=== PATIENT | male | born 1955 | race Caucasian/White ===

== ENCOUNTER → 2017-12-09 | Outpatient (CLI) | payer OTHER ==
[2017-12-09 09:34] LABS: BLOOD UREA NITROGEN 18 mg/dL (8-26)
[2017-12-09 09:34] LABS: CREATININE 0.8 mg/dL (0.7-1.3); GFR 97.6
[2017-12-09] MEDS: GADOBUTROL 7.5 MMOL/7.5 ML VIAL IV ×2 (10:17)
== END | disposition home or self-care (01) ==
LOC: MRI 08:14
DX: M54.16 Radiculopathy, lumbar region (principal); M48.061 Spinal stenosis, lumbar region without neurogenic claudication; I10 Essential (primary) hypertension
CPT/HCPCS: 36415; 72158; 82565; 84520; A9585

== ENCOUNTER → 2018-01-06 | Outpatient (CLI) | payer OTHER | END | disposition home or self-care (01) | LOC: PNCL 10:15 | DX: M48.061 Spinal stenosis, lumbar region without neurogenic claudication (principal); E11.9 Type 2 diabetes mellitus without complications; E66.9 Obesity, unspecified; I10 Essential (primary) hypertension; J44.9 Chronic obstructive pulmonary disease, unspecified; F17.210 Nicotine dependence, cigarettes, uncomplicated; Z79.84 Long term (current) use of oral hypoglycemic drugs; Z95.5 Presence of coronary angioplasty implant and graft | CPT/HCPCS: 99214 ==

== ENCOUNTER → 2018-01-20 | Outpatient (CLI) | payer OTHER ==
[~2018-01-20] MED LIST: IOHEXOL 180 MG/ML 10 ML VIAL.; LIDOCAINE 1% PF 2 ML VIAL.; methylPREDNISolone ACETATE 40 MG/ML VIAL.; methylPREDNISolone ACETATE 80 MG/ML VIAL.
== END | disposition home or self-care (01) ==
LOC: PNCL 09:03
DX: M48.061 Spinal stenosis, lumbar region without neurogenic claudication (principal); M54.16 Radiculopathy, lumbar region; M96.1 Postlaminectomy syndrome, not elsewhere classified
CPT/HCPCS: 62323; J1030; J1040; Q9965

== ENCOUNTER → 2018-03-18 | Outpatient (CLI) | payer OTHER ==
[2015-07-31 12:40] VITALS: BP 173/81
[~2018-03-18] MED LIST changes: +AMLO5TAB2 PO; +ASPI81TA50 PO; +ATOR40TA59 PO; +EMPA25TA PO; +FURO40TA4 PO; +GABA600T2 PO; +HYDR-963 PO; -IOHEXOL 180 MG/ML 10 ML VIAL.; +IOHEXOL 180 MG/ML 10 ML VIAL. ONE; -LIDOCAINE 1% PF 2 ML VIAL.; +LIDOCAINE 2% PF 2ML VIAL. ONE; +LIRA0.6P2 SQ; +METF500T5 PO; +METO50TA6 PO; +NAPR220C4 PO; +OMEP20CA9 PO; +RAMI5CAP PO; +TIOT18CA IH; +TIZA4CAP3 PO; +TRAM50TA PO; -methylPREDNISolone ACETATE 40 MG/ML VIAL.; +methylPREDNISolone ACETATE 40 MG/ML VIAL. ONE; -methylPREDNISolone ACETATE 80 MG/ML VIAL.; +methylPREDNISolone ACETATE 80 MG/ML VIAL. ONE
--- NOTE | 2018-03-19 00:29 | PAIN ---
DATE OF SERVICE: 03/18/2018 PROGRESS NOTE FOR PAIN CLINIC DIAGNOSES: Lumbar radiculopathy with spinal stenosis, lumbar post-laminectomy syndrome. HISTORY OF PRESENT ILLNESS: The patient is a 62-year-old male who returns for followup status post lumbar epidural steroid injection x 1. The patient reports about 56% improvement with the last injection, with pain still radiating from the low back bilaterally. It is somewhat worse on the left, but still in the right side as well. The patient reports it has been increasing with distance walking, increases his inability to do household activities. He is sleeping much better. It does not awaken him from sleep at this time. The patient reports occasional radiation in the lower extremities, mostly in the low back. The patient reports it is aching and tight, stabbing at times. The patient reports it is a 5 on a scale of 10 at its worse, 2 on average, 2 at its least and is a 2 today. The patient reports no new motor or sensory deficits. No new bowel or bladder incontinence or other complaints. PHYSICAL EXAMINATION: VITAL SIGNS: Blood pressure 147/77, pulse 70, respirations 20 and temperature 98.2 degrees Fahrenheit. Height 5 feet 10 inches and weight is 327 pounds. GENERAL: The patient is awake, alert, oriented, appropriate, very pleasant demeanor. HEENT EXAMINATION: Shows normocephalic, atraumatic. Extraocular movements are intact and symmetrical. Oral cavity, mucous membranes are moist and pink. Dentition is intact. NECK: Shows anterior throat supple, without palpable lymphadenopathy noted. Swallow reflex is symmetrical. CHEST: Shows normal on inspection. Breath sounds clear to auscultation bilaterally. HEART: Shows S1, S2 clear. No murmurs auscultated. ABDOMEN: Soft, nontender and nondistended. No palpable organomegaly is noted. Obese. No rebound or guarding demonstrated. No other abnormalities. BACK: Shows spine grossly in the midline. Slight exaggeration of the thoracic kyphosis and minor flattening of the lumbar lordotic curvature. Lumbar paraspinous muscle shows symmetrical on inspection. On palpation, it shows some moderate tenderness only diffusely in the low lumbar distribution without radiation or without trigger points. Good rotational motion is maintained both laterally as well as extension and flexion without pain reported. EXTREMITIES: Lower extremities show deep tendon reflexes 1+ in the patellar and tendo calcaneus tendons. Motor exam is strong, a 4 on a scale of 5 on the left and 5/5 on the right. Quads and hamstring flexion 4/5 left and 5/5 right as well, but intact. Peripheral pulses are 1+ posterior tibia. No peripheral edema is noted. Options were discussed with the patient. The patient's old chart was reviewed as was his current medication regimen updated. Current review of systems updated today as well. We will proceed with a second in the series of lumbar epidural steroid injection today with fluoroscopic guidance. Risks were again discussed including, but not limited to bleeding, infection, possibility of epidural hematoma, subsequent neurologic compromise, dural puncture, headaches, spinal cord and/or nerve damage, side effects of steroid medication and poor results regarding pain control. The patient understands and wishes to proceed. The patient will return to the clinic in approximately 2 weeks for followup. He was counseled on his return appointment, activity level and side effects to be aware of. DIAGNOSES: Lumbar radiculopathy with lumbar spinal stenosis, lumbar post-laminectomy syndrome. PROCEDURE: Lumbar epidural steroid injection in translaminar approach L5-S1 level using C-arm fluoroscopic guidance under sterile prep and drape using local anesthetic. MEDICATION INJECTED: A total of 120 mg Depo-Medrol plus 10 mL of preservative-free normal saline and 2 mL of Isovue for contrast. CONDITION AT DISCHARGE: Stable. The patient tolerated the procedure well. He had no complications. AMOR GOSS MD DR: AUGIE/paty JOB#: [id number] / [id number]
== END | disposition home or self-care (01) ==
LOC: PNCL 08:46
PROVIDERS: ATTEND Anesthesiology
DX: M48.061 Spinal stenosis, lumbar region without neurogenic claudication (principal); M96.1 Postlaminectomy syndrome, not elsewhere classified; M54.16 Radiculopathy, lumbar region; Z79.82 Long term (current) use of aspirin; Z79.899 Other long term (current) drug therapy
CPT/HCPCS: 62323; J1030; J1040; J2001; Q9965

== ENCOUNTER → 2018-09-28 | Outpatient (CLI) | payer OTHER ==
[2015-07-31 12:40] VITALS: BP 173/81
[~2018-09-28] MED LIST changes: +AMLO5TAB10 PO; -AMLO5TAB2 PO; -GABA600T2 PO; +GABA600T7 PO; +HYDR-3135 PO; -HYDR-963 PO; -IOHEXOL 180 MG/ML 10 ML VIAL. ONE; -LIDOCAINE 2% PF 2ML VIAL. ONE; +METF500T16 PO; -METF500T5 PO; +OMEP20CA10 PO; -OMEP20CA9 PO; -RAMI5CAP PO; +RAMI5CAP50 PO; -methylPREDNISolone ACETATE 40 MG/ML VIAL. ONE; -methylPREDNISolone ACETATE 80 MG/ML VIAL. ONE
--- NOTE | 2018-09-28 10:54 | RAD ---
EXAM: Left hip, 2 views; left shoulder, 3 views HISTORY: Pain. COMPARISON: None. FINDINGS: Left hip: 2 views of the left hip are obtained. There is left hip joint space narrowing with subchondral sclerosis and marginal acetabular and femoral head spurring. Left shoulder: 3 views of the left shoulder obtained. There is no fracture, dislocation or subluxation. There is mild acromial clavicular spurring with a tiny subacromial spur. There is minimal glenohumeral spurring. There is degenerative facet arthropathy involving the visualized cervical spine. IMPRESSION: 1. Moderate left hip osteoarthritis. 2. Mild left acromioclavicular and minimal left glenohumeral osteoarthritis. Electronically signed by: Leslie Pham MD (09/28/2018 10:51 AM) [email or web address]
--- NOTE | 2018-09-28 20:00 | PAIN ---
DATE OF SERVICE: 09/28/2018 DIAGNOSES: Lumbar radiculopathy with lumbar spinal stenosis and post-lumbar laminectomy syndrome. HISTORY OF PRESENT ILLNESS: The patient is a 62-year-old male who returns for a followup status post lumbar epidural steroid injections, most recently, 03/18/2018. The patient did very well with about 80% improvement until about 2 months ago. The patient reports for about 4 months, the pain was reduced significantly by about 80% in the low back and left lower extremity. The patient reports it is beginning to return now. He has been chopping a lot of wood at home recently over the past couple of months and has had increased pain in the low back, posterior gluteus, posterior thigh, posterior calf on the left side primarily. The patient reports some on the right gluteus, but across the low back is aching and dull. The patient reports pain is stabbing, burning, aching, sharp, shooting, becoming more constant and radiating to the left leg. The patient reports it is a 7-8 on a scale of 10 at all times, worst, average and least and is a 7-8 on a scale of 10 today. The patient reports no new motor or sensory deficits, no new bowel or bladder incontinence. Did very well with increasing in his distance walking, doing activities at home, at work with chopping wood very comfortably. The patient is sleeping much better. The patient reports it is beginning to awaken him from sleep again over the past month or so but only occasionally, not every night. The patient reports no new motor or sensory deficits, no new bowel or bladder incontinence or other complaints. PHYSICAL EXAMINATION: VITAL SIGNS: The patient's blood pressure 147/76, pulse 59, respirations 16, temperature is 98.1 degrees Fahrenheit, height is 5 feet 10 inches, weight is 328 pounds. GENERAL: The patient is awake, alert, oriented, appropriate, very pleasant demeanor. HEENT: Shows normocephalic, atraumatic. Extraocular movements intact and symmetrical. Oral cavity shows mucous membranes moist and pink. Dentition is intact. NECK: Shows anterior throat supple without palpable lymphadenopathy noted. Swallow reflex is symmetrical. CHEST: Shows normal with inspection. Breath sounds clear to auscultation bilaterally. HEART: Shows S1, S2 clear. No murmurs auscultated. ABDOMEN: Obese, soft, nontender, nondistended. No palpable organomegaly is noted. No rebound or guarding demonstrated. MUSCULOSKELETAL: Back shows spine grossly in the midline, normal appearing thoracic kyphosis and minor flattening of the lumbar lordotic curvature with well healed surgical scar noted in the lumbar distribution. Lumbar paraspinous muscle shows symmetrical on inspection; with palpation shows some moderate tenderness throughout the upper, middle, lower distribution of paraspinous muscles, but without radiation. The patient has good rotational motion of the lumbar spine, both laterally as well as extension and flexion without difficulty. Lower extremities show deep tendon reflexes at 1+ in the patellar and tendo-calcaneus tendons and are equal. Motor exam is strong with approximately 4 on a scale of 5 with left dorsiflexion, extension, 5/5 on the right, quadriceps and hamstring flexion are 5/5 and equal. Peripheral pulses are 1+ posterior tibia. No peripheral edema is noted bilaterally. PLAN: Options were discussed with the patient. The patient's old chart was reviewed as his current medication regimen and updated. Current review of systems was updated today as well. We will proceed with preauthorization for a lumbar epidural steroid injection. The patient did very well after the last injection with about 80% improvement for several months, now pain returning in a radicular pattern in the L5-S1 dermatomal distribution, more on the left lower extremity as noted. The patient will continue to do stretching and strengthening exercises as he has been doing. He is trying to walk every day, but has had some difficulty with cold weather recently and the pain is beginning to limit this to a moderate extent. We encouraged him to maintain his stretching and strengthening and try to do some more walking if he is able to. The patient will return to the clinic in approximately 1 week. We will plan on lumbar epidural steroid injection at that time at L5-S1 level, translaminar approach. In the meantime, we will prescribe a Medrol Dosepak. The patient was given instruction as well as side effects to be aware of, especially watching his blood glucose while taking this and the patient will return to the clinic once approval is obtained. AMOR GOSS MD DR: AUGIE/paty JOB#: [id number] / [id number]
== END | disposition home or self-care (01) ==
LOC: PNCL 09:21
PROVIDERS: ATTEND Anesthesiology
DX: M48.061 Spinal stenosis, lumbar region without neurogenic claudication (principal); M54.16 Radiculopathy, lumbar region; M96.1 Postlaminectomy syndrome, not elsewhere classified; M16.12 Unilateral primary osteoarthritis, left hip; M19.012 Primary osteoarthritis, left shoulder; M75.92 Shoulder lesion, unspecified, left shoulder
CPT/HCPCS: 73030; 73502; G0463

== ENCOUNTER → 2018-10-12 | Outpatient (CLI) | payer OTHER ==
[2015-07-31 12:40] VITALS: BP 173/81
[~2018-10-12] MED LIST changes: +IOHEXOL 180 MG/ML 10 ML VIAL. ONE; +methylPREDNISolone ACETATE 40 MG/ML VIAL. ONE; +methylPREDNISolone ACETATE 80 MG/ML VIAL. ONE
--- NOTE | 2018-10-12 23:28 | PAIN ---
DATE OF SERVICE: 10/12/2018 PROGRESS NOTE FOR PAIN CLINIC DIAGNOSES: Lumbar radiculopathy with lumbar spinal stenosis and post-lumbar laminectomy syndrome. HISTORY OF PRESENT ILLNESS: The patient is a 62-year-old male who returns for followup status post evaluation and preauthorization for lumbar epidural steroid injection. The patient returns today still pain in the low back, left lower extremity as it was previously. The patient reports no new motor or sensory deficits and no new changes. Still significant pain in the posterior gluteus, posterior thigh, posterior calf into the lower leg and ankle as well. The patient reports it is worse with walking, standing, change in positions and also some knee pain and left hip pain as well. The patient reports it is awakening him from sleep at night. No new motor or sensory deficits and rates the pain as 8 on a scale of 10 at its worst, 5 on its least and is 7 on average and is a 7 today. The patient reports it is aching, sharp, dull in the back, shooting in the leg on the left side radiating more constant, more severe with ambulation, walking and better with sitting but again awakening from sleep with lying down. PHYSICAL EXAMINATION: VITAL SIGNS: The patient's blood pressure is 117/43, pulse 57, respirations 16 and temperature is 97.8 degrees Fahrenheit. Height 5 feet 10 inches and weight is 324 pounds. GENERAL: The patient is awake, alert, oriented, appropriate and very pleasant demeanor. HEENT: Head shows normocephalic and atraumatic. Extraocular movements are intact and symmetrical. Oral cavity: Mucous membranes moist and pink. Dentition is intact. NECK: Shows anterior throat supple without palpable lymphadenopathy noted. Swallow reflex is symmetrical. CHEST: Shows normal on inspection. Breath sounds clear to auscultation bilaterally. HEART: Shows S1 and S2 clear. No murmurs auscultated. ABDOMEN: Soft, nontender and nondistended. No palpable organomegaly is noted. No rebound or guarding demonstrated. BACK: Shows spine grossly in the midline. Normal appearing thoracic kyphosis and some flattening of lumbar lordotic curvature with well-healed surgical scar noted. Lumbar paraspinous muscle shows symmetrical on inspection. Somewhat firm with palpation and without radiation of pain. The patient has good rotational motion of the lumbar spine, both laterally as well as extension and flexion without significant pain reported. EXTREMITIES: Lower extremities show deep tendon reflexes at 1+ in the patellar and tendo-calcaneus tendons are equal. Motor exam is strong with 4/5 on the left dorsiflexion and extension and 5/5 on the right. Peripheral pulses are 1+ posterior tibia. No peripheral edema is noted bilaterally. Options were discussed with the patient. The patient's old chart was reviewed as well as his current medication regimen updated. Current review of systems updated today as well. We will proceed with a lumbar epidural steroid injection today with fluoroscopic guidance. Risks were again discussed including, but not limited to bleeding, infection, possibility of epidural hematoma and subsequent neurological compromise, dural puncture, headaches, spinal cord and/or nerve damage, side effects of steroid medication and poor results regarding pain control. The patient understands and wished to proceed. The patient will return to the clinic in approximately 2 weeks for followup, was counseled as to return appointment, activity level and side effects to be aware of. DIAGNOSES: Lumbar radiculopathy with lumbar spinal stenosis and lumbar post-laminectomy syndrome. PROCEDURE: Lumbar epidural steroid injection, translaminar approach, L5-S1 level using C-arm fluoroscopic guidance under sterile prep and drape using local anesthetic. MEDICATION INJECTED: A total of 120 mg Depo-Medrol plus 10 mL of preservative-free normal saline and 2 mL of Isovue for contrast. CONDITION AT DISCHARGE: Stable. The patient tolerated the procedure well and had no complications. AMOR GOSS MD DR: AUGIE/paty JOB#: [id number] / [id number]
== END | disposition home or self-care (01) ==
LOC: PNCL 09:49
PROVIDERS: ATTEND Anesthesiology
DX: M48.061 Spinal stenosis, lumbar region without neurogenic claudication (principal); M96.1 Postlaminectomy syndrome, not elsewhere classified; M54.16 Radiculopathy, lumbar region
CPT/HCPCS: 62323; J1030; J1040; Q9965

== ENCOUNTER → 2019-04-07 | Outpatient (CLI) | payer OTHER ==
[2015-07-31 12:40] VITALS: BP 173/81
[~2019-04-07] MED LIST changes: +CRESTOR10 MG PO; -IOHEXOL 180 MG/ML 10 ML VIAL. ONE; -methylPREDNISolone ACETATE 40 MG/ML VIAL. ONE; -methylPREDNISolone ACETATE 80 MG/ML VIAL. ONE
--- NOTE | 2019-04-07 20:03 | PAIN ---
DATE OF SERVICE: 04/07/2019 PROGRESS NOTE FOR PAIN CLINIC DIAGNOSIS: Lumbar radiculopathy with lumbar spinal stenosis and post-lumbar laminectomy syndrome. HISTORY OF PRESENT ILLNESS: The patient is a 63-year-old male who returns for followup status post lumbar epidural steroid injection, last seen on 10/12/2018. The patient did very well initially with about a 75% improvement, now is decreasing down to about a 50% improvement overall, but still doing quite well. The patient reports the pain is returning now more noticeable each day in the low back, posterior gluteus, radiating to posterior lower extremities, worse on the left than the right into the posterior thigh, posterior calf on the left with walking, standing, and changing positions. The patient reports it awakens him from sleep at least 2-3 times a night. Reports the pain is tight, shooting, tingling, burning, cramping, stabbing, radiating, becoming more constant, better with sitting down or lying down, but again waking him from sleep. The patient reports initially he was doing better with distance walking, doing work activities, household activities, standing for longer periods and traveling with greater ease and comfort, now the pain is returning again still significantly improved, but returning in a radicular fashion, worse on the left than the right in the L5-S1 dermatomal distribution. The patient reports his pain in the last week average is 5-6, worst is 5-6 and least is 5/5 today. The patient reports no new motor or sensory deficits, no new bowel or bladder incontinence or other complaints. PHYSICAL EXAMINATION: VITAL SIGNS: The patient's blood pressure 154/83, pulse 57, respirations are 16, temperature 98.2 degrees Fahrenheit, height is 5 feet 10 inches, weight is 311 pounds. GENERAL: The patient is awake, alert, oriented, appropriate, very pleasant demeanor. HEENT: Head is normocephalic, atraumatic. Extraocular movements are intact and symmetrical. Oral cavity: Mucous membranes moist and pink. Dentition is intact. NECK: Shows anterior throat supple without palpable lymphadenopathy noted. Swallow reflex symmetrical. CHEST: Shows normal on inspection. Breath sounds are clear to auscultation bilaterally. HEART: Shows S1, S2 clear. No murmurs auscultated. ABDOMEN: Soft, nontender, nondistended. No palpable organomegaly is noted. No rebound or guarding demonstrated. BACK: Shows spine grossly in the midline. The patient's lumbar spine shows some moderate flattening curvature with well-healed surgical scarring noted. Lumbar paraspinous muscle shows symmetrical on inspection, with palpation shows some moderate tenderness throughout the upper, middle and lower distribution of paraspinous musculature bilaterally, but only diffusely without significant radiation. EXTREMITIES: The patient's lower extremities show deep tendon reflexes at 1+ in the patellar and tendo-calcaneus tendons. Motor exam is approximately 4 on a scale of 5 on the left and 5/5 on the right with dorsiflexion, extension, quadriceps and hamstring flexion. Peripheral pulses are 1+ posterior tibia. No peripheral edema is noted bilaterally. Straight leg raise noted to be mildly positive on the left at about 45 degrees, decreased with knee flexion, right side is negative. Gaenslen's and Karan's test are negative bilaterally. Options were discussed with the patient. The patient's old chart was reviewed as his current medication regimen updated. Current review of systems updated today as well. We will preauthorize the patient for lumbar epidural steroid injections. He has done very well with these in the past in the L5-S1 translaminar approach for his radiculopathy, left greater than right at L5-S1 dermatomal distribution. The patient will continue with stretching and strengthening exercises. He is doing on his own as well as walking as much as tolerated. In the meantime, the patient will return to clinic in approximately 1 week to plan on lumbar epidural steroid injection at that time. AMOR GOSS MD DR: AUGIE/paty JOB#: [id number] / [id number]
== END | disposition home or self-care (01) ==
LOC: PNCL 07:29
PROVIDERS: ATTEND Anesthesiology
DX: M54.16 Radiculopathy, lumbar region (principal); M48.061 Spinal stenosis, lumbar region without neurogenic claudication
CPT/HCPCS: G0463

== ENCOUNTER → 2019-04-21 | Outpatient (CLI) | payer OTHER ==
[2015-07-31 12:40] VITALS: BP 173/81
[~2019-04-21] MED LIST changes: +IOHEXOL 180 MG/ML 10 ML VIAL. ONE; +methylPREDNISolone ACETATE 40 MG/ML VIAL. ONE; +methylPREDNISolone ACETATE 80 MG/ML VIAL. ONE
--- NOTE | 2019-04-21 08:46 | PAIN ---
DATE OF SERVICE: 04/21/2019 PROGRESS NOTE FOR PAIN CLINIC DIAGNOSES: Lumbar radiculopathy with lumbar spinal stenosis, post-lumbar laminectomy syndrome. HISTORY OF PRESENT ILLNESS: The patient is a 63-year-old male who returns for followup status post lumbar epidural steroid injection x 1, about 75% improvement, is waiting for preauthorization with his insurance provider, which is obtained. Now returns reporting still pain in the low back, left lower extremity, posterior gluteus, posterior thigh, posterior left foot. The patient reports it is tingling, burning, aching, sharp, shooting, radiating, sometimes constant, worse with walking, standing, changing positions, better with lying down, but does awaken him from sleep at night occasionally. The patient reports no new motor or sensory deficits, no new bowel or bladder incontinence. Rates his pain as a 7 on a scale of 10 at its worst over the past week, 6 on average, 5 at its least and is a 6 today. The patient reports no new motor or sensory deficits, no new bowel or bladder incontinence or other complaints. PHYSICAL EXAMINATION: VITAL SIGNS: The patient's blood pressure is 125/73, pulse 78, respirations 16, temperature 98.0 degrees Fahrenheit, height is 5 feet 10 inches, weight is 310 pounds. GENERAL: The patient is awake, alert, oriented, appropriate, very pleasant demeanor. HEENT: Shows normocephalic, atraumatic. Extraocular movements are intact and symmetrical. Oral cavity: Mucous membranes moist and pink. Dentition is intact. NECK: Shows anterior throat supple without palpable lymphadenopathy noted. Swallow reflex symmetrical. CHEST: Shows normal on inspection. Breath sounds are clear to auscultation bilaterally. HEART: Shows S1, S2 clear. No murmurs auscultated. ABDOMEN: Soft, nontender, nondistended. No palpable organomegaly is noted. No rebound or guarding demonstrated. BACK: Shows spine grossly in the midline. Well-healed surgical scars noted in the lumbar distribution with some flattening of lumbar lordotic curvature with inspection. Lumbar paraspinous musculature is symmetrical. With palpation, shows some moderate tenderness diffusely in the middle and lower distribution of paraspinous muscles bilaterally, but only diffusely without radiation or asymmetry. EXTREMITIES: The patient's lower extremities show deep tendon reflexes at 1+ in the patellar and tendo calcaneus tendons. Motor exam is approximately 4 on a scale of 5 on the left, 5/5 on the right with dorsiflexion, extension, quadriceps and hamstring flexion. Peripheral pulses are 1+ posterior tibial. No peripheral edema is noted bilaterally. Options were discussed with the patient. The patient's old chart was reviewed as his current medication regimen updated. Current review of systems updated today as well. We will proceed with a second in the series of lumbar epidural steroid injection today with fluoroscopic guidance. Risks were again discussed including, but not limited to bleeding, infection, possibility of epidural hematoma, subsequent neurological compromise, dural puncture, headaches, spinal cord and/or nerve damage, side effects of steroid medication and poor results regarding pain control. The patient understands and wished to proceed. The patient will return to clinic in approximately 2 weeks for followup. She was counseled on return appointment, activity level and side effects to be aware of. DIAGNOSES: Lumbar radiculopathy with lumbar spinal stenosis, lumbar post-laminectomy syndrome. PROCEDURE: Lumbar epidural steroid injection, translaminar approach at the L5-S1 level using C-arm fluoroscopic guidance under sterile prep and drape using local anesthetic. MEDICATION INJECTED: The patient received a total of 120 mg Depo-Medrol plus 10 mL of preservative-free normal saline and 2 mL of contrast. CONDITION AT DISCHARGE: Stable. The patient tolerated the procedure well, did have a slight headache in the recovery room, which have resolved with the supine position and p.o. Tylenol. The patient was counseled to maintain low activity today and just to seated or lying down if possible. The case of worsening of potential spinal headache. The patient understands and agrees, was discharged in good and stable condition. AMOR GOSS MD DR: AUGIE/paty JOB#: [id number] / [id number]
== END ==
LOC: PNCL 07:25
PROVIDERS: ATTEND Anesthesiology
DX: M54.16 Radiculopathy, lumbar region (principal); M48.061 Spinal stenosis, lumbar region without neurogenic claudication
CPT/HCPCS: 62323; J1030; J1040; Q9965

== ENCOUNTER → 2019-08-11 | Outpatient (CLI) | payer OTHER, MEDICARE ==
[2015-07-31 12:40] VITALS: BP 173/81
[~2019-08-11] MED LIST changes: -IOHEXOL 180 MG/ML 10 ML VIAL. ONE; -OMEP20CA10 PO; +OMEP20CA16 PO; -methylPREDNISolone ACETATE 40 MG/ML VIAL. ONE; -methylPREDNISolone ACETATE 80 MG/ML VIAL. ONE
--- NOTE | 2019-08-11 10:40 | PAIN ---
DATE OF SERVICE: 08/11/2019 PROGRESS NOTE FOR PAIN CLINIC DIAGNOSES: Lumbar radiculopathy with lumbar spinal stenosis, lumbar post-laminectomy syndrome. HISTORY OF PRESENT ILLNESS: The patient is a 63-year-old male who returns for followup status post lumbar epidural steroid injection x 2, most recently on 04/21/2019. The patient had 80% improvement for about 6 weeks following the injection. The patient reports his left hip was better, he was sleeping better, was increased activity with greater distance walking, doing household activities with much greater ease and comfort, traveling with better ease. The patient reports it is awakening him from sleep occasionally now, but only about every 7 hours. He is getting most of a good night rest he reports. The patient reports the pain is returning in the low back, posterior gluteus, posterior thigh on the left side radiating to posterior calf and the knee as well. The patient reports it is aching, sharp, dull, shooting, stabbing, radiating and becoming severe at times with standing and walking. The patient reports it is better with sitting or lying down. The patient reports his pain is 8 on a scale of 10 at its worst over the past week, 7 on average, 5 at its least and is a 7 today. The patient reports no new motor or sensory deficits, no new bowel or bladder incontinence or other complaints. PHYSICAL EXAMINATION: VITAL SIGNS: The patient's blood pressure 141/72, pulse 74, respirations 16, temperature 98.2 degrees Fahrenheit, height is 5 feet 10 inches and weight is 310 pounds. GENERAL: The patient is awake, alert, oriented, appropriate, very pleasant demeanor. HEENT: Shows normocephalic, atraumatic. Extraocular movements are intact and symmetrical. Oral cavity shows mucous membranes are moist and pink. NECK: Shows anterior throat supple. CHEST: Shows normal on inspection. Breath sounds are clear bilaterally. HEART: Shows S1, S2 clear. ABDOMEN: Obese, soft, nontender, nondistended. No palpable organomegaly. BACK: Shows spine grossly in the midline. Slight exaggeration of thoracic kyphosis and minor flattening of lumbar lordotic curvature with well-healed surgical scars noted. Lumbar paraspinous muscle shows symmetrical on inspection, with palpation shows some moderate tenderness diffusely throughout the upper, middle and lower distribution of paraspinous muscles, but is symmetrical without evidence of atrophy, hypertrophy or trigger points. No radiation of pain. The patient has good rotational motion both laterally greater than 10 degrees right and left as well as extension greater than 10 degrees, forward flexion 45 degrees without significant pain reported. EXTREMITIES: The patient's lower extremities show deep tendon reflexes at 1+ in the patellar and tendo calcaneus tendons are equal. Motor exam is strong with approximately 4 on a scale of 5 on the left with dorsiflexion and extension, 5/5 on the right. Peripheral pulses are 1+ posterior tibial. PLAN: Options were discussed with the patient. The patient's old chart was reviewed as his current medication regimen updated. Current review of systems updated today as well. We will preauthorize the patient for lumbar epidural steroid injections. He has done very well with these in the past with still clinical L5-S1 radiculopathy on the left. We will plan on lumbar epidural steroid injection, translaminar approach at the L5-S1 level. The patient will continue with stretching and strengthening exercises on his own and continue walking daily as tolerated. We will wait for preauthorization and plan on lumbar epidural steroid injection on return. AMOR GOSS MD DR: AUGIE/paty JOB#: [id number] / [id number]
== END | disposition home or self-care (01) ==
LOC: PNCL 08:11
PROVIDERS: ATTEND Anesthesiology
DX: M54.16 Radiculopathy, lumbar region (principal); M48.061 Spinal stenosis, lumbar region without neurogenic claudication; M96.1 Postlaminectomy syndrome, not elsewhere classified
CPT/HCPCS: G0463

== ENCOUNTER → 2019-08-25 | Outpatient (CLI) | payer OTHER, MEDICARE ==
[2015-07-31 12:40] VITALS: BP 173/81
[~2019-08-25] MED LIST changes: +IOHEXOL 180 MG/ML 10 ML VIAL. ONE; +methylPREDNISolone ACETATE 40 MG/ML VIAL. ONE; +methylPREDNISolone ACETATE 80 MG/ML VIAL. ONE
--- NOTE | 2019-08-25 22:53 | PAIN ---
DATE OF SERVICE: 08/25/2019 PROGRESS NOTE FOR PAIN CLINIC DIAGNOSES: Lumbar radiculopathy with lumbar spinal stenosis and lumbar post-laminectomy syndrome. HISTORY OF PRESENT ILLNESS: The patient is a 63-year-old male who returns for followup status post lumbar epidural steroid injections x 2, last seen on 08/11/2019 after his last injection on 04/21/2019. The patient reports no new motor or sensory deficits and did very well after the last injection with about 60-70% improvement overall. Initially, there was about 80% improvement, but then the pain began to return, still about 60% improvement. The patient reports that over the past month the pains are returning in low back and left lower extremity in the posterior gluteus, radiating to posterior left leg, thigh, and calf. The patient reports it is burning, stabbing, aching, sharp, dull, shooting, and constant, becoming more severe and radiating in the left leg with walking, standing, and changing positions. Prior to that, he is doing much better with distance walking, doing work activities, household activities, and traveling with greater ease and comfort. The patient is retired now. He reports that he is able to monitor his activity better and control his pain better that way as well. He reports that it does occasionally awaken him from sleep, not every night, about every 6-7 hours. The patient reports that his pain is a 10 on a scale of 10 at its worst over the past week, 7 on average, 4 at its least, and is a 7 today. The patient reports no new motor or sensory deficits and no new changes. PHYSICAL EXAMINATION: VITAL SIGNS: The patient's blood pressure is 141/80, pulse 72, respirations 20, temperature is 98.2 degrees Fahrenheit, height is 5 feet 10 inches, and weight is 309 pounds. GENERAL: The patient is awake, alert, oriented, and appropriate. He has a very pleasant demeanor. HEENT: Head shows normocephalic and atraumatic. Extraocular movements are intact and symmetrical. Oral cavity shows mucous membranes moist and pink. Dentition is intact. NECK: Anterior throat supple without palpable lymphadenopathy noted. Swallow reflex symmetrical. CHEST: Shows normal on inspection. Breath sounds are clear to auscultation bilaterally. HEART: Shows S1, S2 clear. ABDOMEN: Obese, soft, nontender, and nondistended. BACK: Shows spine grossly in the midline. Normal appearing thoracic kyphosis and flattening of lumbar lordotic curvature with well-healed surgical scar. Lumbar paraspinous muscle shows symmetrical on inspection throughout the upper, middle, and lower distribution of paraspinous muscles, but only diffusely without radiation. EXTREMITIES: The patient's lower extremities show deep tendon reflexes 1+ in the patellar and tendo-calcaneus tendons. Motor exam is strong with 4/5 left dorsiflexion and extension and 5/5 on the right. Peripheral pulses are 1+ in posterior tibia. No peripheral edema bilaterally. Options were discussed with the patient. The patient's old chart was reviewed as his current medication regimen updated. Current review of systems updated today as well. We will proceed with a lumbar epidural steroid injection today with fluoroscopic guidance. Risks were again discussed including but not limited to bleeding, infection, possibility of epidural hematoma, subsequent neurologic compromise, dural puncture, headaches, spinal cord and/or nerve damage, side effects of steroid medication, and poor results regarding pain control. The patient understands and wished to proceed. The patient will return to clinic in approximately 2 weeks for followup. He was counseled on return appointment, activity level, and side effects to be aware of. DIAGNOSES: Lumbar radiculopathy with lumbar spinal stenosis and lumbar post-laminectomy syndrome. PROCEDURE: Lumbar epidural steroid injection, translaminar approach, at L5-S1 level using C-arm fluoroscopic guidance under sterile prep and drape using local anesthetic. MEDICATION INJECTED: A total of 120 mg Depo-Medrol plus 10 mL of preservative-free normal saline and 2 mL of contrast. CONDITION AT DISCHARGE: Stable. The patient tolerated the procedure well and had no complications. AMOR GOSS MD DR: AUGIE/paty JOB#: [id number] / [id number]
== END ==
LOC: PNCL 07:31
PROVIDERS: ATTEND Anesthesiology
DX: M54.16 Radiculopathy, lumbar region (principal); M48.061 Spinal stenosis, lumbar region without neurogenic claudication; M96.1 Postlaminectomy syndrome, not elsewhere classified
CPT/HCPCS: 62323; J1030; J1040; Q9965

== ENCOUNTER → 2019-09-09 | Outpatient (CLI) | payer OTHER ==
[2015-07-31 12:40] VITALS: BP 173/81
[~2019-09-09] MED LIST changes: -IOHEXOL 180 MG/ML 10 ML VIAL. ONE; -methylPREDNISolone ACETATE 40 MG/ML VIAL. ONE; -methylPREDNISolone ACETATE 80 MG/ML VIAL. ONE
--- NOTE | 2019-09-09 08:39 | RAD ---
EXAM: Left shoulder, 3 views. HISTORY: Pain. COMPARISON: 09/08/2018 FINDINGS: 3 views of the left shoulder obtained. There is no fracture, dislocation or subluxation. There is degenerative acromioclavicular joint spurring. There is also degenerative change along the greater tuberosity at the rotator cuff insertion. IMPRESSION: 1. Mild acromioclavicular joint osteoarthritis. 2. No acute osseous finding. Electronically signed by: Leslie Pham MD (09/09/2019 8:36 AM) [facility]
== END | disposition home or self-care (01) ==
LOC: RAD 08:02
PROVIDERS: ATTEND Anesthesiology
DX: M19.012 Primary osteoarthritis, left shoulder (principal); M75.81 Other shoulder lesions, right shoulder
CPT/HCPCS: 73030

== ENCOUNTER → 2019-09-20 | Outpatient (CLI) | payer OTHER, MEDICARE ==
[2015-07-31 12:40] VITALS: BP 173/81
--- NOTE | 2019-09-20 09:04 | PAIN ---
DATE OF SERVICE: 09/20/2019 PROGRESS NOTE FOR PAIN CLINIC DIAGNOSES: Lumbar radiculopathy with lumbar degenerative disk disease and lumbar spinal stenosis and post-laminectomy syndrome. HISTORY OF PRESENT ILLNESS: The patient is a 63-year-old male who returns for followup status post lumbar epidural steroid injection x 1 this series. The patient reports about 75% improvement after the first injection for about 2 weeks. The patient reports the pain is beginning to return now in the low back and left lower extremity, but only about 50% improvement overall. Still, the patient reports increase in activity with greater distance walking, doing work activities, household activities, has been chopping wood with greater ease and comfort, sleeping much better. The patient reports his pain is a 6 on a scale of 10 at its worst over the past week, 5 on average, 3 at its least and is a 3 today. The patient reports it is aching, sharp, dull, shooting, can be tingling, stabbing, radiating into the left posterior gluteus, posterior thigh in a radicular pattern on the left side. The patient reports no new motor or sensory deficits, no new bowel or bladder incontinence or other complaints. PHYSICAL EXAMINATION: VITAL SIGNS: The patient's blood pressure is 120/65, pulse 65, respirations 16, temperature 98.4 degrees Fahrenheit, height is 5 feet 10 inches, and weight is 309 pounds. GENERAL: The patient is awake, alert, oriented, appropriate, very pleasant demeanor. HEENT: Shows normocephalic, atraumatic. Extraocular movements are intact and symmetrical. Oral cavity: Mucous membranes moist and pink. Dentition is intact. NECK: Shows anterior throat supple. CHEST: Shows normal on inspection. Breath sounds clear bilaterally. HEART: Shows S1, S2 clear. No murmurs auscultated. ABDOMEN: Soft, obese, nontender, nondistended. BACK: Shows spine grossly in the midline. Normal-appearing thoracic kyphosis and minor flattening of lumbar lordotic curvature. Lumbar paraspinous muscle shows symmetrical on inspection, on palpation shows some moderate tenderness diffusely in the low lumbar distribution only without radiation. The patient has good rotational motion of lumbar spine, both laterally as well as extension and flexion without significant difficulty. EXTREMITIES: Lower extremities show deep tendon reflexes at 1+ in the patellar and tendo calcaneus tendons. Motor exam is strong with approximately 4 on a scale of 5 with left dorsiflexion, extension 5/5 on the right. Peripheral pulses are 1+ posterior tibia. No peripheral edema is noted bilaterally. Options were discussed with the patient. The patient's old chart was reviewed as his current medication regimen updated. Current review of systems updated today as well. We will preauthorize the patient for a second lumbar epidural steroid injection. He still has clinical L5-S1 left-sided radiculopathy, did very well after the first injection, now pain is beginning to return, still about 50% improvement overall, even after 3 weeks of time. The patient will wait for preauthorization with his insurance provider. Once this is obtained, we will have the patient return and plan on a lumbar epidural steroid injection at L5-S1 level, translaminar approach at that time. AMOR GOSS MD DR: AUGIE/paty JOB#: [id number] / [id number]
== END | disposition home or self-care (01) ==
LOC: PNCL 07:32
PROVIDERS: ATTEND Anesthesiology
DX: M51.16 Intervertebral disc disorders with radiculopathy, lumbar region (principal); M48.061 Spinal stenosis, lumbar region without neurogenic claudication; M96.1 Postlaminectomy syndrome, not elsewhere classified
CPT/HCPCS: 99214; G0463

== ENCOUNTER → 2019-09-27 | Outpatient (CLI) | payer OTHER, MEDICARE ==
[2015-07-31 12:40] VITALS: BP 173/81
[~2019-09-27] MED LIST changes: +BUPIVACAINE MPF 0.25% 10 ML VIAL. ONE; +IOHEXOL 180 MG/ML 10 ML VIAL. ONE; +methylPREDNISolone ACETATE 40 MG/ML VIAL. ONE; +methylPREDNISolone ACETATE 80 MG/ML VIAL. ONE
--- NOTE | 2019-09-27 10:17 | PAIN ---
DATE OF SERVICE: 09/27/2019 PROGRESS NOTE FOR PAIN CLINIC DIAGNOSES: 1. Lumbar radiculopathy with lumbar spinal stenosis, post-lumbar laminectomy syndrome. 2. Left shoulder joint pain with osteoarthritis. HISTORY OF PRESENT ILLNESS: The patient is a 63-year-old male who returns for followup status post lumbar epidural steroid injection x 1. With this series, the patient reports about 40-50% improvement with his low back. He has increased his distance walking, doing household activities, traveling with greater ease and comfort, feels better in the low back, but still some pain in the left lower extremity as well as posterior gluteus, posterior thigh, but his chief complaint is left shoulder pain. We discussed with him on his last visit and had improved for a left acromioclavicular joint injection today and would like to proceed with that. He has had significant pain with lifting any items with left hand, especially carrying items at his side and rotation of motion and reaching over his head with his left hand. The patient reports it is a 7 on a scale of 10 at its worse in the past week, 6 on average, 3 at its least and is a 6 today. The patient reports it is aching, dull, radiating, becoming more severe, on and off in intensity. The patient reports no new motor or sensory deficits, no new bowel or bladder incontinence or other complaints. PHYSICAL EXAMINATION: VITAL SIGNS: The patient's blood pressure 126/77, pulse is 76, respirations 18, temperature is 98.0 degrees Fahrenheit, height is 5 feet 10 inches, weight is 308 pounds. GENERAL: The patient is awake, alert, oriented, appropriate, very pleasant demeanor. HEENT: Shows normocephalic, atraumatic. Extraocular movements are intact and symmetrical. Oral cavity shows mucous membranes moist and pink. Dentition is intact. NECK: Shows anterior throat supple without palpable lymphadenopathy noted. Swallow reflex symmetrical. CHEST: Shows normal on inspection. Breath sounds are clear bilaterally. HEART: Shows S1, S2 clear. No murmurs auscultated. ABDOMEN: Soft, nontender, nondistended. No palpable organomegaly is noted. No rebound or guarding demonstrated. BACK: Shows spine grossly in the midline. Normal appearing thoracic kyphosis, cervical lordotic curvature and lumbar lordotic curvature is slightly flattened with well-healed surgical scarring. Lumbar paraspinous muscle shows symmetrical on inspection, with palpation shows some moderate tenderness diffusely bilaterally going diffusely without significant radiation. The patient's left shoulder shows some significant tenderness with palpation over the acromioclavicular joint, both anteriorly and posteriorly, but without specific radiation. The patient shows full rotation of motion; however, with good abduction right and left forward and posterior aspect rotation as well as reaching his hands over his head that is without significant limitation. He has significant tenderness over the joint itself and with weightbearing. Peripheral pulses are 2+ radial. No peripheral edema is noted. EXTREMITIES: Lower extremities show deep tendon reflexes 1+ in the patellar and tendo calcaneus tendons. Motor exam is strong with 4/5 on the left and 5/5 right dorsiflexion, extension, quadriceps and hamstring flexion. Peripheral pulses are 1+ in the posterior tibia. No peripheral edema is noted. Options were discussed with the patient. The patient's old chart reviewed and current medication regimen as well as his current medication regimen updated and current review of systems updated today as well. We will proceed with a left acromioclavicular joint injection today with fluoroscopic guidance. Risks were again discussed including, but not limited to bleeding, infection, possibility of intravascular injection sequelae, spread of local anesthetic and numbness, side effects of steroid medication, exposure to fluoroscopy and poor results regarding pain control. The patient understands and wished to proceed. The patient will return to clinic in approximately 2 weeks for followup. He was counseled as to return appointment, activity level and side effects to be aware of. DIAGNOSIS: Left shoulder joint pain with acromioclavicular osteoarthritis. PROCEDURE: Left acromioclavicular joint injection using C-arm fluoroscopic guidance under sterile prep and drape using local anesthetic. MEDICATION INJECTED: A total of 80 mg Depo-Medrol plus 3 mL of 0.25% bupivacaine after negative aspiration. CONDITION AT DISCHARGE: Stable. The patient tolerated the procedure well, had no complications. AMOR GOSS MD DR: AUGIE/paty JOB#: [id number] / [id number]
== END ==
LOC: PNCL 07:29
PROVIDERS: ATTEND Anesthesiology
DX: M19.012 Primary osteoarthritis, left shoulder (principal); M54.16 Radiculopathy, lumbar region; M96.1 Postlaminectomy syndrome, not elsewhere classified; M48.061 Spinal stenosis, lumbar region without neurogenic claudication
CPT/HCPCS: 20605; 77002; J1040; J3490; Q9965; J1030

== ENCOUNTER → 2019-10-13 | Outpatient (CLI) | payer OTHER ==
[2015-07-31 12:40] VITALS: BP 173/81
[~2019-10-13] MED LIST changes: -BUPIVACAINE MPF 0.25% 10 ML VIAL. ONE; -IOHEXOL 180 MG/ML 10 ML VIAL. ONE; +IOHEXOL 240 MG/ML 50ML VIAL. ONE
--- NOTE | 2019-10-13 09:26 | PAIN ---
DATE OF SERVICE: 10/13/2019 PROGRESS NOTE FOR PAIN CLINIC DIAGNOSES: Lumbar radiculopathy with lumbar degenerative disk disease, lumbar spinal stenosis and lumbar post-laminectomy syndrome. HISTORY OF PRESENT ILLNESS: The patient is a 63-year-old male who returns for followup status post lumbar epidural steroid injection x 1 on 08/25/2019. The patient most recently had a left acromioclavicular joint injection, which he reports helped about 50%. The epidural injection, however, helped about 60%. The patient reports still some significant pain in the low back and in the left lower extremity, posterior gluteus, posterior thigh, posterior calf, but mostly in the low back the patient reports it is a 5 on a scale of 10 at all times, average, worst and least and is a 5 today. The patient reports it is aching, sharp, dull, tight, shooting, radiating at times, burning, on and off in intensity, better with sitting or lying down, generally does not awaken him from sleep at night. Initially, he was increasing distance walking, doing household activities with much greater ease and comfort, traveling with greater ease. Now, the pain is returning. The patient reports no new motor or sensory deficits, no new bowel or bladder incontinence. PHYSICAL EXAMINATION: VITAL SIGNS: The patient's blood pressure 130/60, pulse 59, respirations 18, temperature 97.6 degrees Fahrenheit, height is 5 feet 10 inches, weight is 304 pounds. GENERAL: The patient is awake, alert, oriented, appropriate, very pleasant demeanor. HEENT: Head shows normocephalic, atraumatic. Extraocular movements are intact and symmetrical. Oral cavity: Mucous membranes moist and pink. Dentition is intact. NECK: Shows anterior throat supple without palpable lymphadenopathy noted. Swallow reflex symmetrical. CHEST: Shows normal on inspection. Breath sounds are clear bilaterally. HEART: Shows S1, S2 clear. No murmurs auscultated. ABDOMEN: Soft, nontender, nondistended. BACK: Shows spine grossly in the midline. Normal appearing thoracic kyphosis and flattening of lumbar lordotic curvature with well-healed surgical scarring noted. Lumbar paraspinous muscle shows symmetrical on inspection, on palpation shows some moderate tenderness diffusely bilaterally, only in the low lumbar distribution without radiation. The patient has good rotational motion of lumbar spine, both laterally as well as extension and flexion without significant pain reported. EXTREMITIES: The patient's lower extremities show deep tendon reflexes 1+ patellar and tendo calcaneus tendons. Motor exam is approximately 4 on a scale of 5 with left, 5/5 on the right with dorsiflexion and extension. Peripheral pulses are 1+. No peripheral edema bilaterally. Options were discussed with the patient. The patient's old chart was reviewed as his current medication regimen updated. Current review of systems updated today as well. We will proceed with a lumbar epidural steroid injection today with fluoroscopic guidance. Risks were again discussed including, but not limited to bleeding, infection, possibility of epidural hematoma, subsequent neurologic compromise, dural puncture, headaches, spinal cord and/or nerve damage, side effects of steroid medication and poor results regarding pain control. The patient understands and wished to proceed. The patient will return to clinic in approximately 2 weeks for followup. He was counseled on return appointment, activity level and side effects to be aware of. DIAGNOSES: Lumbar radiculopathy with lumbar spinal stenosis and lumbar post-laminectomy syndrome. PROCEDURE: Lumbar epidural steroid injection, translaminar approach at the L5-S1 level using C-arm fluoroscopic guidance under sterile prep and drape using local anesthetic. MEDICATION INJECTED: A total of 120 mg Depo-Medrol plus 10 mL of preservative-free normal saline and 2 mL of contrast. CONDITION AT DISCHARGE: Stable. The patient tolerated the procedure well, had no complications. AMOR GOSS MD DR: AUGIE/paty JOB#: [id number] / [id number]
== END ==
LOC: PNCL 07:34
PROVIDERS: ATTEND Anesthesiology
DX: M51.16 Intervertebral disc disorders with radiculopathy, lumbar region (principal); M48.061 Spinal stenosis, lumbar region without neurogenic claudication; M96.1 Postlaminectomy syndrome, not elsewhere classified
CPT/HCPCS: 62323; J1030; J1040; Q9966

== ENCOUNTER → 2020-01-04 | Outpatient (CLI) | payer OTHER ==
[2015-07-31 12:40] VITALS: BP 173/81
[~2020-01-04] MED LIST changes: -IOHEXOL 240 MG/ML 50ML VIAL. ONE; -methylPREDNISolone ACETATE 40 MG/ML VIAL. ONE; -methylPREDNISolone ACETATE 80 MG/ML VIAL. ONE
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
== END | disposition home or self-care (01) ==
LOC: PNCL 08:54
PROVIDERS: ATTEND Anesthesiology
DX: M19.012 Primary osteoarthritis, left shoulder (principal); M54.16 Radiculopathy, lumbar region; M96.1 Postlaminectomy syndrome, not elsewhere classified; M48.061 Spinal stenosis, lumbar region without neurogenic claudication
CPT/HCPCS: G0463

== ENCOUNTER → 2020-01-20 | Outpatient (CLI) | payer OTHER ==
[2015-07-31 12:40] VITALS: BP 173/81
[~2020-01-20] MED LIST changes: +IOHEXOL 180 MG/ML 10 ML VIAL. ONE; +methylPREDNISolone ACETATE 40 MG/ML VIAL. ONE; +methylPREDNISolone ACETATE 80 MG/ML VIAL. ONE
--- NOTE | 2020-01-20 10:17 | PAIN ---
DATE OF SERVICE: 01/20/2020 PROGRESS NOTE FOR PAIN CLINIC DIAGNOSES: 1. Lumbar radiculopathy with lumbar spinal stenosis, lumbar post-laminectomy syndrome. 2. Left shoulder joint pain with osteoarthritis. HISTORY OF PRESENT ILLNESS: The patient is a 64-year-old male who returns for followup status post lumbar epidural steroid injection x 2. The patient did very well after last injection with about 75% improvement. We preauthorized him for a third injection today. His pain is returning in the low back, left lower extremity in a radicular fashion as previously. The patient reports still burning and aching in the low back with pain radiating to posterior gluteus on the left side, posterior calf, posterior foot and lateral foot and toes on the left side. It is tingling, burning, stabbing at times, aching and sharp in the back, dull at times, tight and shooting in the leg, can be constant, severe and radiating. The patient reports it is worse with walking, standing, change in positions, initially was doing much better with better distance walking, doing household activities, traveling with greater ease. The patient reports it is beginning to awaken him from sleep once again about every 5-6 hours. The patient reports no new motor or sensory deficits, no new bowel or bladder incontinence or other complaints. PHYSICAL EXAMINATION: VITAL SIGNS: The patient's blood pressure 140/95, pulse 64, respirations 18, temperature 98.8 degrees Fahrenheit, height is 5 feet 10 inches, weight is 327 pounds. GENERAL: The patient is awake, alert, oriented, appropriate, very pleasant demeanor. HEENT: Shows normocephalic, atraumatic. Extraocular movements are intact and symmetrical. Oral cavity: Mucous membranes moist and pink. Dentition is intact. NECK: Shows anterior throat supple without palpable lymphadenopathy noted. Swallow reflex symmetrical. CHEST: Shows normal on inspection. Breath sounds are clear bilaterally. HEART: Shows S1, S2 clear. ABDOMEN: Obese, soft, nontender, nondistended. BACK: Shows spine grossly in the midline. Normal appearing thoracic kyphosis and some flattening of lumbar lordotic curvature with well-healed surgical scar noted. Lumbar paraspinous muscle shows symmetrical on inspection, with palpation shows some moderate tenderness diffusely throughout the upper, middle and lower distribution of paraspinous muscles. The patient does show good rotational motion of lumbar spine, however, both laterally as well as extension and flexion without difficulty. EXTREMITIES: Lower extremities show deep tendon reflexes at 1+ in the patellar and tendo calcaneus tendons. Motor exam is approximately 4 on a scale of 5 on the left with dorsiflexion and extension, 5/5 on the right. Peripheral pulses are 1+. No peripheral edema is noted bilaterally. Options were discussed with the patient. The patient's old chart was reviewed as his current medication regimen updated. Current review of systems updated today as well. We will proceed with lumbar epidural steroid injection today, third in the series with fluoroscopic guidance. Risks were again discussed including, but not limited to bleeding, infection, possibility of epidural hematoma, subsequent neurological compromise, dural puncture headaches, spinal cord and/or nerve damage, side effects of steroid medication and poor results regarding pain control. The patient understands and wished to proceed. The patient will return to clinic in approximately 3 weeks for followup. He was counseled on return appointment, activity level and side effects to be aware of. DIAGNOSIS: Lumbar radiculopathy with lumbar spinal stenosis, lumbar post-laminectomy syndrome. PROCEDURE: Lumbar epidural steroid injection, translaminar approach at the L5-S1 level using C-arm fluoroscopic guidance under sterile prep and drape using local anesthetic. MEDICATION INJECTED: A total of 120 mg Depo-Medrol plus 10 mL of preservative-free normal saline and 2 mL of contrast. CONDITION AT DISCHARGE: Stable. The patient tolerated procedure well, had no complications. AMOR GOSS MD DR: AUGIE/paty JOB#: [id number] / [id number]
== END ==
LOC: PNCL 08:53
PROVIDERS: ATTEND Anesthesiology
DX: M54.16 Radiculopathy, lumbar region (principal); M96.1 Postlaminectomy syndrome, not elsewhere classified; M48.061 Spinal stenosis, lumbar region without neurogenic claudication; M19.012 Primary osteoarthritis, left shoulder
CPT/HCPCS: 62323; J1030; J1040; Q9965

== ENCOUNTER → 2020-05-08 | Outpatient (CLI) | payer OTHER ==
[2015-07-31 12:40] VITALS: BP 173/81
--- NOTE | 2020-05-08 09:55 | PDOC ---
Progress Note - Pain Clinic Date of Service: DOS: DATE: 05/08/20 TIME: 09:51 Diagnosis: Dx: Lumbar radiculopathy with lumbar spinal stenosis and lumbar postlaminectomy syndrome History or Present Illness: HPI: 64-year-old male returns follow-up status post lumbar epidural steroid injections x3 most recently January 20, 2020 patient did very well with about a 75% improvement the pain is been returning now we will wait for preauthorization with his insurance provider he is obtained that now we did try Medrol Dosepak after his last visit which was helpful with some significant decrease in pain for about 5 days while he was taking it but the pain returned after that now complains of pain low back left lower extremity primarily posterior gluteus posterior thigh posterior calf radiating to the left leg and foot patient which is burning and stabbing aching sharp dull tight shooting nonradiating pending more constant with activity rates as a 9 on scale 10 is worse over the past week 9 on average of 7 its least and is a 7 today patient reports is waking from sleep about every 6 hours initially was doing much better with distance walking doing household activities work activities patient did very active over the past few weeks has been helping his daughter renovate some yard items on a new home that she is buying and has been using a wheel loader operator as well as a jackhammer which is increases pain in his low back his left leg as well. Patient reports no loss of motor function no bowel or bladder incontinence Physical Exam: VS: Blood pressure is 160/84 pulse 72 respirations 18 temperature 90.7 F height is 5 feet 10 inches weight is 331 pounds PE: PHYSICAL EXAMINATION: GENERAL: The patient is awake, alert, oriented, appropriate, very pleasant d emeanor HEENT: Shows normocephalic, atraumatic. Extraocular movements are intact and symmetrical. Oral cavity: Mucous membranes moist and pink. NECK: Shows anterior throat supple without palpable lymphadenopathy noted. Swallow reflex symmetrical. CHEST: Shows normal on inspection. Breath sounds are clear bilaterally no rales rhonchi or wheezes. HEART: Shows S1, S2 clear. No murmurs auscultated. ABDOMEN: Soft, nontender, nondistended, obese. No palpable organomegaly is noted. No rebound or guarding demonstrated. BACK: Shows spine grossly in the midline. Normal-appearing cervical lordotic curvature. There is slightly increased thoracic kyphosis, some minor flattening of the lumbar lordotic curvature. Lumbar paraspinous muscles show symmetrical on inspection, on palpation shows some moderate tenderness diffusely throughout the upper, middle and lower distribution of the paraspinous muscles bilaterally, without specific trigger points, without radiation of pain. The patient has good rotational motion of the lumbar spine, both laterally as well as extension and flexion without significant difficulty. No tenderness over the spinous processes, sacrum or sacroiliac regions. EXTREMITIES: Lower extremities show deep tendon reflexes 1+ in the patellar and tendo calcaneus tendons. Motor exam is 5 on a scale of 5 with right dorsiflexion, extension, quadriceps and hamstring flexion and 4/5 on the left. Peripheral pulses are 1+ posterior tibial. No peripheral edema is noted bilaterally. Lower extremities are warm and dry to touch, equal in color and appearance. SKIN: Shows warm and dry, good turgor. No edema. No sores, rashes or bruising throughout. Procedure: Procedure: Options were discussed with the patient. Patient chart was reviewed his his current medication regimen updated current review of systems updated today as well. We will proceed with a first in the series lumbar epidural steroid injection today with fluoroscopic guidance. Risks were discussed including but not limited to: Bleeding, infection, possibility of epidural hematoma and subsequent neurological compromise, dural puncture, headaches, spinal cord and/or nerve damage, side effects of steroid medication, and poor results regarding pain control. Patient understands wished to proceed. Patient return to clinic in approximate 2 weeks for follow-up was counseled as to return appointment activity level and side effects to be aware of. Medication Injected: Med Injected: Procedure is lumbar epidural steroid injection under local anesthetic using sterile prep and drape at the L5-S1 level using C-arm fluoroscopic guidance in both AP and lateral views medications injected is 120 mg Depo-Medrol + 10 mL preservative-free normal saline and 2 mL contrast- condition at discharge is stable patient tolerated procedure well had no complications. Condition at Discharge: Condition at Discharge: Condition at discharge is stable patient tolerated the procedure well had no complications. AMOR GOSS MD May 08, 2020 09:54
== END | disposition home or self-care (01) ==
LOC: PNCL 09:00
PROVIDERS: ATTEND Anesthesiology
DX: M54.16 Radiculopathy, lumbar region (principal); M48.061 Spinal stenosis, lumbar region without neurogenic claudication; M96.1 Postlaminectomy syndrome, not elsewhere classified; Z98.890 Other specified postprocedural states
CPT/HCPCS: 62323; J1030; J1040; Q9965

== ENCOUNTER → 2020-08-28 | Outpatient (CLI) | payer OTHER ==
[2015-07-31 12:40] VITALS: BP 173/81
[~2020-08-28] MED LIST changes: +AMLO-186 PO; -AMLO5TAB10 PO
--- NOTE | 2020-08-28 09:36 | PDOC4 ---
PROCEDURE Procedure Patient was consented for lumbar epidural steroid injection. Risks were dis cussed including but not limited to: Bleeding, infection, possibility of epidural hematoma and subsequent neurological compromise, dural puncture, headaches, spinal cord and/or nerve damage, side effects of steroid medication, and poor results regarding pain control. Patient understands and wished to proceed. Procedure is lumbar epidural steroid injection under local anesthetic using sterile prep and drape at the L5-S1 level using C-arm fluoroscopic guidance in both AP and lateral views medications injected is 120 mg Depo-Medrol + 10 mL preservative-free normal saline and 2 mL contrast- condition at discharge is stable patient tolerated procedure well had no complications. AMOR GOSS MD Aug 28, 2020 09:36
--- NOTE | 2020-08-28 09:36 | PDOC ---
Progress Note - Pain Clinic Date of Service: DOS: DATE: 08/28/20 TIME: 09:33 Diagnosis: Dx: Lumbar radiculopathy with lumbar spinal stenosis and lumbar postlaminectomy syndrome History or Present Illness: HPI: 64-year-old male returns for follow-up status post lumbar epidural steroid injection x1 last seen May 08, 2020. Patient reports he did very well with about 70% improvement in the low back and left lower extremity pain the pain is returning now over the past 6 to 8 weeks in the low back and the left lower extremity posterior gluteus posterior thigh posterior calf and numbness and tingling in the lateral toes on the left foot only. Patient cries pain is aching sharp dull alternating with shooting pains in the leg radiating burning and tingling in the back becoming more constant with walking standing changing positions. Patient reports initially he was doing much better with distance walking doing household activities and traveling with greater ease also sleeping better at night still better with sitting or laying down does not generally awaken from sleep most nights. Patient rates pain is 8 on scale 10 is worse over the past week 7 on average 5 its least 5 today. Patient reports no new motor or sensory deficits no new bowel or bladder incontinence or other complai nts. Physical Exam: VS: Blood pressure is 93/79 pulse 76 respirations 18 temperature 99.2 F height is 5 feet 10 inches weight is 337 pounds PE: PHYSICAL EXAMINATION: GENERAL: The patient is awake, alert, oriented, appropriate, very pleasant demeanor HEENT: Shows normocephalic, atraumatic. Extraocular movements are intact and symmetrical. NECK: Shows anterior throat supple without palpable lymphadenopathy noted. Swallow reflex symmetrical. CHEST: Shows normal on inspection. Breath sounds are clear bilaterally, no rales or rhonchi. HEART: Shows S1, S2 clear. No murmurs auscultated. ABDOMEN: Soft, nontender, nondistended, obese. No palpable organomegaly is noted. No rebound or guarding demonstrated. BACK: Shows spine grossly in the midline. Normal-appearing cervical lordotic curvature. There is increased thoracic kyphosis, some flattening of the lumbar lordotic curvature. Lumbar paraspinous muscles show symmetrical on inspection, on palpation shows some moderate tenderness diffusely throughout the upper, middle and lower distribution of the paraspinous muscles without specific trigger points, without radiation of pain. The patient has good rotational motion of the lumbar spine, both laterally as well as extension and flexion without significant difficulty. EXTREMITIES: Lower extremities show deep tendon reflexes 1+ in the patellar and tendo calcaneus tendons. Motor exam is 5 on a scale of 5 with right dorsiflexion, extension, quadriceps and hamstring flexion and 4/5 on the left. Peripheral pulses are 1+ posterior tibial. No peripheral edema is noted bilaterally. Lower extremities are warm and dry to touch, equal in color and appearance. SKIN: Shows warm and dry, good turgor. No edema. No sores, rashes or bruising throughout. Procedure: Procedure: Options were discussed with the patient. Patient chart was reviewed his his current medication regimen updated current review of systems updated today as well. We will proceed with a lumbar epidural steroid injection today as a second in the series. Risks were discussed including but not limited to: Bleeding, infection, possibility of epidural hematoma and subsequent neurological compromise, dural puncture, headaches, spinal cord and/or nerve damage, side effects of steroid medication, and poor results regarding pain control. Patient understands and wished to proceed. Patient will return to the clinic in approximate 2 weeks for follow-up, was counseled as to return appointment activity level, and side effects to be aware of. Medication Injected: Med Injected: Procedure is lumbar epidural steroid injection under local anesthetic using sterile prep and drape at the L5-S1 level using C-arm fluoroscopic guidance in both AP and lateral views medications injected is 120 mg Depo-Medrol + 10 mL preservative-free normal saline and 2 mL contrast- condition at discharge is stable patient tolerated procedure well had no complications. Condition at Discharge: Condition at Discharge: Condition at discharge stable, patient tolerated the procedure well and had no complications. AMOR GOSS MD Aug 28, 2020 09:36
== END | disposition home or self-care (01) ==
LOC: PNCL 08:45
PROVIDERS: ATTEND Anesthesiology
DX: M48.061 Spinal stenosis, lumbar region without neurogenic claudication (principal); M51.46 Schmorl's nodes, lumbar region; M96.1 Postlaminectomy syndrome, not elsewhere classified; F17.210 Nicotine dependence, cigarettes, uncomplicated; Z79.82 Long term (current) use of aspirin; Z79.84 Long term (current) use of oral hypoglycemic drugs; Z79.899 Other long term (current) drug therapy; Z98.890 Other specified postprocedural states; Z72.89 Other problems related to lifestyle
CPT/HCPCS: 62323; J1030; J1040; Q9965

== ENCOUNTER → 2020-11-27 | Outpatient (CLI) | payer OTHER ==
[2015-07-31 12:40] VITALS: BP 173/81
--- NOTE | 2020-11-27 09:52 | PDOC ---
Progress Note - Pain Clinic Date of Service: DOS: DATE: 11/27/20 TIME: 09:50 Diagnosis: Dx: Lumbar radiculopathy with lumbar spinal stenosis and lumbar postlaminectomy syndrome Left shoulder joint pain with osteoarthritis History or Present Illness: HPI: CT 5-year-old male returns for follow-up status post lumbar epidural steroid injection to last seen August 23021. Patient reports he did very well with the least 50% improvement for about 8 weeks following the injection patient reports pain is returning down the low back and the bilateral lower extremities posterior gluteus posterior thighs and calves also some pain in his knees patient reports his pain is a 9 on scale 10 is worse over the past week 8 on average 7 its least is an 8 today patient describes as aching and sharp dull at times shooting tingling and stabbing radiating can be constant or severe with walking standing better with sitting or laying down absent awaken her from sleep though over the past few weeks about 2-3 times a night patient reports no new motor or sensory deficits no new bowel or bladder incontinence. Physical Exam: VS: Blood pressure is 174/81 pulse 87 respiration 16 temperature 97.7 F weight is 336 pounds PE: PHYSICAL EXAMINATION: GENERAL: The patient is awake, alert, oriented, appropriate, very pleasant demeanor. HEENT: Shows normocephalic, atraumatic. Extraocular movements are intact and symmetrical. Oral cavity: Mucous membranes moist and pink. NECK: Shows anterior throat supple without palpable lymphadenopathy noted. Swallow reflex symmetrical. CHEST: Shows normal on inspection. Breath sounds are clear bilaterally, no rales or rhonchi. HEART: Shows S1, S2 clear. No murmurs auscultated. ABDOMEN: Soft, nontender, nondistended, obese. No palpable organomegaly is noted. BACK: Shows spine grossly in the midline. Normal-appearing cervical lordotic curvature. There is slightly increased thoracic kyphosis, some minor flattening of the lumbar lordotic curvature. Lumbar paraspinous muscles show symmetrical on inspection, on palpation shows some moderate tenderness diffusely throughout the upper, middle and lower distribution of the paraspinous muscles but without specific trigger points, without radiation of pain. The patient has good rotational motion of the lumbar spine, both laterally as well as extension and flexion without significant difficulty. EXTREMITIES: Lower extremities show deep tendon reflexes 1+ in the patellar and tendo calcaneus tendons. Motor exam is 5 on a scale of 5 with right dorsiflexion, extension, quadriceps and hamstring flexion and 4/5 on the left. Peripheral pulses are 1+ posterior tibial. No peripheral edema is noted bilaterally. Lower extremities are warm and dry to touch, equal in color and appearance. SKIN: Shows warm and dry, good turgor. No edema. No sores, rashes or bruising throughout. Procedure: Procedure: Options were discussed with patient. Patient chart was reviewed his current medication regimen updated current review of systems updated today as well. We will proceed with a third in the series lumbar epidural steroid injection stable fluoroscopic guidance. Risks were discussed including but not limited to: Bleeding, infection, possibility of epidural hematoma and subsequent neurological compromise, dural puncture, headaches, spinal cord and/or nerve damage, side effects of steroid medication, and poor results regarding pain control. Patient understands and wished to proceed. Patient will return to [facility] in approximate 2 weeks for follow-up, was counseled as to return appointment activity level and side effects to be aware of. Medication Injected: Med Injected: Procedure is lumbar epidural steroid injection under local anesthetic using sterile prep and drape at the L5-S1 level using C-arm fluoroscopic guidance in both AP and lateral views medications injected is 120 mg Depo-Medrol + 10 mL preservative-free normal saline and 2 mL contrast- condition at discharge is stable patient tolerated procedure well had no complications. Condition at Discharge: Condition at Discharge: Condition at discharge stable, patient alert procedure well and had no complications. AMOR GOSS MD Nov 27, 2020 09:52
--- NOTE | 2020-11-27 09:53 | PDOC4 ---
PROCEDURE Procedure Patient was consented for lumbar epidural steroid injection. Risks were dis cussed including but not limited to: Bleeding, infection, possibility of epidural hematoma and subsequent neurological compromise, dural puncture, headaches, spinal cord and/or nerve damage, side effects of steroid medication, and poor results regarding pain control. Patient understands and wished to proceed. Procedure is lumbar epidural steroid injection under local anesthetic using sterile prep and drape at the L5-S1 level using C-arm fluoroscopic guidance in both AP and lateral views medications injected is 120 mg Depo-Medrol + 10 mL preservative-free normal saline and 2 mL contrast- condition at discharge is stable patient tolerated procedure well had no complications. AMOR GOSS MD Nov 27, 2020 09:53
== END | disposition home or self-care (01) ==
LOC: PNCL 08:54
PROVIDERS: ATTEND Anesthesiology
DX: M48.061 Spinal stenosis, lumbar region without neurogenic claudication (principal); M54.16 Radiculopathy, lumbar region; M96.1 Postlaminectomy syndrome, not elsewhere classified; M19.012 Primary osteoarthritis, left shoulder; F17.210 Nicotine dependence, cigarettes, uncomplicated; Z79.82 Long term (current) use of aspirin; Z79.899 Other long term (current) drug therapy; Z98.890 Other specified postprocedural states; Z72.89 Other problems related to lifestyle
CPT/HCPCS: 62323; J1030; J1040; Q9965

== ENCOUNTER → 2020-12-04 | Outpatient (CLI) | payer OTHER ==
[2015-07-31 12:40] VITALS: BP 173/81
[~2020-12-04] MED LIST changes: -IOHEXOL 180 MG/ML 10 ML VIAL. ONE; +IOHEXOL 240 MG/ML 50ML VIAL. PO ONE; +IOHEXOL 300 MG/ML 100ML VIAL. IV ONE; -methylPREDNISolone ACETATE 40 MG/ML VIAL. ONE; -methylPREDNISolone ACETATE 80 MG/ML VIAL. ONE
--- NOTE | 2020-12-04 10:11 | KCIC ---
EXAM: CT Abdomen and Pelvis with IV contrast CLINICAL HISTORY: RLQ pain,evaluate appendix. COMPARISON: none TECHNIQUE: Helical CT of the abdomen and pelvis was performed following the administration of intrave nous contrast. Axial, coronal and sagittal reformatted images were generated. PQRS compliance statement - One or more of the following individualized dose reduction techniques wer e utilized for this study: 1. Automated exposure control 2. Adjustment of the mA and/or kV according to patient size 3. Use of iterative reconstruction technique FINDINGS: Lower Chest: Lung bases are clear. Coronary calcifications are seen. Abdomen and Pelvis: No focal liver lesion. Gallbladder is normal. No biliary ductal dilatation. Pancreas is unremarkable. Spleen is normal in appearance. Adrenal glands are unremarkable. Symmetric nephrograms. Bilateral re nal cysts are seen. No hydronephrosis. No hydroureter. Nonobstructing left interpolar renal calculus. Bladder is unremarkable. Appendix is normal. Moderate colonic stool content is seen. No small or large bowel dilatation. No jeffrey wel obstruction. Aorta is normal in caliber with dense atherosclerotic calcifications. Small fat-containing periumbilical hernia. No abdominal or pelvic ascites. No abdominal or pelvic lym phadenopathy. Bones: Degenerative changes of the spine are seen. Hip joint degenerative changes are seen. IMPRESSION: The appendix is normal. Moderate colonic stool content is seen. No bowel obstruction. Bilateral renal cysts are seen. Dense atherosclerotic calcifications of the aorta. Electronically signed by: Lasha Kitchen MD (12/04/2020 10:09 AM) [email or web address]
== END ==
LOC: KCIC CT 07:54
PROVIDERS: ATTEND Family Medicine
DX: K42.9 Umbilical hernia without obstruction or gangrene (principal); M16.0 Bilateral primary osteoarthritis of hip; N28.1 Cyst of kidney, acquired; I70.0 Atherosclerosis of aorta; N20.0 Calculus of kidney
CPT/HCPCS: 74177; 82565; Q9966; Q9967

== ENCOUNTER → 2020-12-19 | Outpatient (CLI) | payer OTHER ==
[2015-07-31 12:40] VITALS: BP 173/81
[~2020-12-19] MED LIST changes: -IOHEXOL 240 MG/ML 50ML VIAL. PO ONE; -IOHEXOL 300 MG/ML 100ML VIAL. IV ONE
--- NOTE | 2020-12-19 10:54 | KCIC ---
RS Compliance Statement: One or more of the following individualized dose reduction techniques were utilized for this examinat ion: 1. Automated exposure control 2. Adjustment of the mA and/or kV according to patient size 3. Use of iterative reconstruction technique Coronary calcium score CT chest without contrast History: Cardiovascular screening, family history of CAD. Diabetes, hypertension. Technique: With retrospective electrocardiogram gating axial reconstructed noncontrast images of the chest at the level of the coronary arteries was performed. Images were post processed on workstation and calcium score calculated using the modified Agatston Janowitz protocol. Findings: Total coronary calcium score is 4408. This is an extensive plaque burden and very high card iovascular disease risk. This is based on the calcium score of 0 of the left main coronary artery, 13 57 of the left anterior descending artery, score of 471 of the left circumflex artery and score of 25 80 of the right coronary artery. Noncoronary findings demonstrate calcified left paratracheal lymph node. Please note that the calcium score of the left main is not 0. There is some proximal calcium in the left main but this is contigu ous with calcium in the LAD, the software does not allow the 2. Great vessels are upper li mits of normal in caliber. Cardiac size normal, no pericardial effusion. Visualized upper abdomen is unremarkable. The visualized right lung is clear. Tiny left lower lobe calcified granuloma. Minimal s carring in the basilar left lower lobe just above the hemidiaphragm. IMPRESSION: Patient's total calcium score is 4408. Electronically signed by: Estuardo Parson MD (12/19/2020 10:51 AM) [id number]
== END ==
LOC: KCIC CT 08:20
PROVIDERS: ATTEND Family Medicine
DX: Z13.6 Encounter for screening for cardiovascular disorders (principal); J84.10 Pulmonary fibrosis, unspecified; J98.4 Other disorders of lung; I25.10 Atherosclerotic heart disease of native coronary artery without angina pectoris; E11.9 Type 2 diabetes mellitus without complications; I10 Essential (primary) hypertension; Z82.49 Family history of ischemic heart disease and other diseases of the circulatory system
CPT/HCPCS: 75571

== ENCOUNTER → 2021-02-19 | Outpatient (CLI) | payer OTHER ==
[2015-07-31 12:40] VITALS: BP 173/81
[~2021-02-19] MED LIST changes: +IOHEXOL 180 MG/ML 10 ML VIAL. ONE; +methylPREDNISolone ACETATE 40 MG/ML VIAL. ONE; +methylPREDNISolone ACETATE 80 MG/ML VIAL. ONE
--- NOTE | 2021-02-19 08:35 | PDOC ---
Progress Note - Pain Clinic Date of Service: DOS: DATE: 02/19/21 TIME: 08:32 Diagnosis: Dx: Lumbar radiculopathy with lumbar spinal stenosis and lumbar postlaminectomy syndrome Left shoulder joint pain with osteoarthritis History or Present Illness: HPI: 65-year-old male returns for follow-up status post lumbar epidural steroid injections most recently November 27, 2020. Patient reports he did well but 75% improvement after the last injection for about 8 weeks or so patient reports pain is been returning and we called in a Medrol Dosepak for him on January 17 which he did very well with for a few weeks as well. Patient reports now the pain is returning the low back more in the left lower extremity this time posterior gluteus posterior thigh posterior calf and into the ankle on the left side patient reports is radiating constant stabbing and tingling aching sharp dull tight in the back shooting and radiating the leg patient reports is an 8 on scale 10 is worse over the past week 7 on average 5 its least is an 8 today. Patient reports he has had some stumbling episodes at home but is not falling but his left leg is beginning to get more weak which is a new finding he has not had a weakness in the leg significantly at least in the last year or so but with the pain in the leg is feeling more weak on the left side only. Patient reports right side stay strong but he started to get some pain in his right hip as he feels he is overcompensating for the pain and weakness in his left leg with walking and standing. Initially patient was doing much better with walking doing household activities sleeping much better now the pain returning again with some new findings of some weakness in the left leg as noted. Physical Exam: VS: Blood pressure is 166/97 pulse 80 respirations 16 temperature 90.5 F weight is 392 pounds PE: PHYSICAL EXAMINATION: GENERAL: The patient is awake, alert, oriented, appropriate, very pleasant in demeanor HEENT: Shows normocephalic, atraumatic. Extraocular movements are intact and symmetrical. Dentition is intact. NECK: Shows anterior throat supple without palpable lymphadenopathy noted. Swallow reflex symmetrical. CHEST: Shows normal on inspection. Breath sounds are clear bilaterally, distant but no rales rhonchi or wheezes auscultated. HEART: Shows S1, S2 clear. No murmurs auscultated. ABDOMEN: Soft, nontender, nondistended, obese. BACK: Shows spine grossly in the midline. Normal-appearing cervical lordotic curvature. There is slightly increased thoracic kyphosis, some minor flattening of the lumbar lordotic curvature. Lumbar paraspinous muscles show symmetrical on inspection, on palpation shows some moderate tenderness diffusely throughout the upper, middle and lower distribution of the paraspinous muscles, but without specific trigger points, without radiation of pain. The patient has good rotational motion of the lumbar spine, both laterally as well as extension and flexion without significant difficulty. No tenderness over the spinous processes, sacrum or sacroiliac regions. EXTREMITIES: Lower extremities show deep tendon reflexes 1+ in the patellar and tendo calcaneus tendons. Motor exam is 5 on a scale of 5 with right dorsiflexion, extension, quadriceps and hamstring flexion and 4/5 on the left. Peripheral pulses are 1+ posterior tibial. No peripheral edema is noted bilaterally. Lower extremities are warm and dry. SKIN: Shows warm and dry, good turgor. No edema. No sores, rashes or bruising throughout. Procedure: Procedure: Options discussed with patient. Patient chart was reviewed his current medication regimen updated current review of systems updated today as well. We will proceed with a epidural steroid injection as the first in the series today with fluoroscopic guidance. Risks were discussed including but not limited to: Bleeding, infection, possibility of epidural hematoma and subsequent neurological compromise, dural puncture, headaches, spinal cord and/or nerve damage, side effects of steroid medication, and poor results regarding pain control. Patient understands and wished to proceed. Patient will return to the clinic in approximate 2 is for follow-up, was counseled as to return appointment activity level and side effects to be aware of. Medication Injected: Med Injected: Procedure is lumbar epidural steroid injection under local anesthetic using sterile prep and drape at the L5-S1 level using C-arm fluoroscopic guidance in both AP and lateral views medications injected is 120 mg Depo-Medrol +10mL preservative-free normal saline and 2 mL contrast- condition at discharge is stable patient tolerated procedure well had no complications. Condition at Discharge: Condition at Discharge: Condition at discharge stable, patient already procedure well and had no complications. AMOR GOSS MD Feb 19, 2021 08:35
--- NOTE | 2021-02-19 08:36 | PDOC4 ---
Procedure Note: Procedure Note: Patient was consented for lumbar epidural steroid injection. Risks were discussed including but not limited to: Bleeding, infection, possibility of epidural hematoma and subsequent neurological compromise, dural puncture, headaches, spinal cord and/or nerve damage, side effects of steroid medication, and poor results regarding pain control. Patient understands and wished to proceed. Procedure is lumbar epidural steroid injection under local anesthetic using sterile prep and drape at the L5-S1 level using C-arm fluoroscopic guidance in both AP and lateral views medications injected is 120 mg Depo-Medrol +10mL preservative-free normal saline and 2 mL contrast- condition at discharge is stable patient tolerated procedure well had no complications. AMOR GOSS MD Feb 19, 2021 08:36
== END | disposition home or self-care (01) ==
LOC: PNCL 07:28
PROVIDERS: ATTEND Anesthesiology
DX: M54.16 Radiculopathy, lumbar region (principal); M48.061 Spinal stenosis, lumbar region without neurogenic claudication; M96.1 Postlaminectomy syndrome, not elsewhere classified; M19.012 Primary osteoarthritis, left shoulder; F17.210 Nicotine dependence, cigarettes, uncomplicated; Z79.82 Long term (current) use of aspirin; Z79.84 Long term (current) use of oral hypoglycemic drugs; Z79.899 Other long term (current) drug therapy; Z98.890 Other specified postprocedural states; Z72.89 Other problems related to lifestyle
CPT/HCPCS: 62323; J1030; J1040; Q9965

== ENCOUNTER → 2021-04-11 | Outpatient (CLI) | payer OTHER ==
[2015-07-31 12:40] VITALS: BP 173/81
[~2021-04-11] MED LIST changes: +BUPIVACAINE MPF 0.25% 10 ML VIAL. ONE; -methylPREDNISolone ACETATE 40 MG/ML VIAL. ONE
--- NOTE | 2021-04-11 09:37 | PDOC ---
Progress Note - Pain Clinic Date of Service: DOS: DATE: 04/11/21 TIME: 09:32 Diagnosis: Dx: Lumbar radiculopathy with lumbar spinal stenosis lumbar postlaminectomy syndrome Bilateral shoulder joint pain with osteoarthritis History or Present Illness: HPI: 65-year-old male returns for follow-up status post lumbar epidural steroid injection on February 19, 2021. Patient reports he did fairly well with this with the pain reduced in the low back and lower extremities however his main complaint is right shoulder joint pain after he fell proximally a month ago while he was climbing off of his trailer patient reports he landed on his right side with his arm extended and significant pain in the shoulder since that time. Patient reports some pain on the left side but mostly on the right patient reports it is worse with repetitive motions reaching reaching to the side especially on weightbearing especially picking up anything in front of him with weightbearing such as a gallon of milk or even a cup of coffee because significant pain in the anterior medial aspect of the shoulder. Patient rates it as a 10 on scale 10 is worse over the past week 9 on average 6 its least and is a 6 today patient was aching dull tight shooting stabbing radiating constant severe on and off in intensity but worse with trying to sleep he is having difficulty waking from sleep about once every 2-3 hours patient reports once he is comfortable he is able to sleep getting there is difficult patient reports no loss of motor function but significant fatigability and difficulty with grasping and lifting items with the right arm. Patient reports no difficulty reaching over his head with his right hand although it is uncomfortable to perform this fully. Patient did have some x-rays at the [facility] which showed no bony abnormal ities. Physical Exam: VS: Blood pressure 130/83 pulse 74 respirations 18 temperature is 90.3 F height is 5 feet 10 inches weight is 341 pounds PE: PHYSICAL EXAMINATION: GENERAL: The patient is awake, alert, oriented, appropriate, very pleasant in demeanor HEENT: Shows normocephalic, atraumatic. Extraocular movements are intact and symmetrical. Oral cavity: Mucous membranes moist and pink. Dentition is intact. NECK: Shows anterior throat supple without palpable lymphadenopathy noted. Swallow reflex symmetrical. CHEST: Shows normal on inspection. Breath sounds are clear bilaterally, no rales or rhonchi. HEART: Shows S1, S2 clear. No murmurs auscultated. ABDOMEN: Soft, nontender, nondistended, obese. No palpable organomegaly is noted. BACK: Shows spine grossly in the midline. Normal-appearing cervical lordotic curvature. There is slightly increased thoracic kyphosis, some minor flattening of the lumbar lordotic curvature. Lumbar paraspinous muscles show symmetrical on inspection, on palpation shows some moderate tenderness diffusely throughout the upper, middle and lower distribution of the paraspinous muscles without specific trigger points, without radiation of pain. The patient has good rotat ional motion of the lumbar spine, both laterally as well as extension and flexion without significant difficulty. No tenderness over the spinous processes, sacrum or sacroiliac regions. EXTREMITIES: Lower extremities show deep tendon reflexes 1 in the patellar and tendo calcaneus tendons. Motor exam is 5 on a scale of 5 with right dorsiflexion, extension, quadriceps and hamstring flexion and 4/5 on the left. Peripheral pulses are 1+ posterior tibial. No peripheral edema is noted bilaterally. Lower extremities are warm and dry to touch, equal in color and appearance. 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 Patient has good rotation motion of shoulder both laterally as well as extension forward we are reach abduction of the shoulder 9 degrees causes significant pain especially with resistance left side is nontender. SKIN: Shows warm and dry, good turgor. No edema. No sores, rashes or bruising throughout. Procedure: Procedure: Options discussed with patient. Patient chart was reviewed as his current medication regimen updated current review of systems updated today as well. We will proceed with a right intra-articular shoulder joint injection today with fluoroscopic guidance. Risk discussed including but not limited to bleeding infection possibility of intravascular injection and sequelae, spread local anesthetic numbness side effects steroid medication and poor results regarding pain control. Patient understands wished to proceed. Patient return to the clinic in approximately 4 weeks for follow-up, was counseled as to return appointment activity level and side effects to be aware of. Medication Injected: Med Injected: Patient supine position under sterile prep and drape using C-arm fluoroscopic guidance patient's left shoulder was visualized and using 25-gauge needle 1% lidocaine was used to topically anesthetized area over the glenohumeral joint on the left. Using a 22-gauge Quincke needle with stylette the joint was entered under direct fluoroscopic visualization without difficulty stylet was removed at this time 2 cc of contrast was injected with good intra-articular spread in the shoulder joint without uptake. At this time 3 cc of 0.25% bupivacaine and 80 mg Depo-Medrol was then injected into the joint. Needle was removed and sterile bandage was applied. Patient tolerated the procedure well and had no complications. Condition at Discharge: Condition at Discharge: Condition at discharge stable, patient alert the procedure well and had no complications. AMOR GOSS MD Apr 11, 2021 09:37
--- NOTE | 2021-04-11 09:37 | PDOC4 ---
Procedure Note: ICD 10 Code: ICD 10 Code: M2 5.511 M19.011 Procedure Note: Patient was consented for right intra-articular shoulder joint injection with fluoroscopic guidance. Risks were discussed including not limited to bleeding infection possibility of intravascular injection sequelae spread of local anesthetic numbness side effects of steroid medication and poor results regarding pain control. He understands wished to proceed. Patient supine position under sterile prep and drape using C-arm fluoroscopic guidance patient's left shoulder was visualized and using 25-gauge needle 1% lidocaine was used to topically anesthetized area over the glenohumeral joint on the left. Using a 22-gauge Quincke needle with stylette the joint was entered under direct fluoroscopic visualization without difficulty stylet was removed at this time 2 cc of contrast was injected with good intra-articular spread in the shoulder joint without uptake. At this time 3 cc of 0.25% bupivacaine and 80 mg Depo-Medrol was then injected into the joint. Needle was removed and sterile bandage was applied. Patient tolerated the procedure well and had no complications. AMOR GOSS MD Apr 11, 2021 09:37
== END | disposition home or self-care (01) ==
LOC: PNCL 08:22
PROVIDERS: ATTEND Anesthesiology
DX: M19.012 Primary osteoarthritis, left shoulder (principal); M19.011 Primary osteoarthritis, right shoulder; M54.16 Radiculopathy, lumbar region; F17.210 Nicotine dependence, cigarettes, uncomplicated; Z79.82 Long term (current) use of aspirin; Z79.899 Other long term (current) drug therapy; Z98.890 Other specified postprocedural states
CPT/HCPCS: 20610; 77002; J1040; J3490; Q9965

== ENCOUNTER → 2021-04-30 | Outpatient (CLI) | payer OTHER ==
[2015-07-31 12:40] VITALS: BP 173/81
[~2021-04-30] MED LIST changes: -BUPIVACAINE MPF 0.25% 10 ML VIAL. ONE; -IOHEXOL 180 MG/ML 10 ML VIAL. ONE; -methylPREDNISolone ACETATE 80 MG/ML VIAL. ONE
--- NOTE | 2021-04-30 08:10 | PDOC ---
Progress Note - Pain Clinic Date of Service: DOS: DATE: 04/30/21 TIME: 08:05 Diagnosis: Dx: Lumbar radiculopathy lumbar spinal stenosis lumbar postlaminectomy syndrome Left shoulder joint pain with osteoarthritis Right shoulder joint pain with osteoarthritis History or Present Illness: HPI: 65-year-old male returns for follow-up status post lumbar epidural steroid injection February 19, 2021 with about 75% improvement at the time with pain returning in the low back and into the left greater than right lower extremity but in both lower extremities posterior gluteus posterior thighs posterior calves worse with walking standing changing positions better with sitting or laying down patient reports is an 8 on scale 10 is worst over the past week 5-8 on average is a 5 its least is a 6 today patient ports aching sharp tight shooting stabbing radiating the left lower extremity greater than right on and off in intensity worse with walking standing changing positions initially was doing much better with distance walking doing household activities work activities travel with greater ease and comfort and sleeping much better patient reports still better with lying down and is not currently awakening him from sleep at night. Patient reports no bowel or bladder incontinence no loss of motor function with significant fatigability of left lower extremity compared to the right with walking and ambulation. Patient reports the radicular component of the pain began to return about 3 to 4 weeks ago in the low back is still achy and sore in quality as well. Patient continues to do stretching strength exercises which were learned from physical therapy, as well as walking to the best of his ability about every other day. Patient taking tramadol as well as gabapentin and Zanaflex which decreases the pain but only very mildly. Physical Exam: VS: Blood pressure is 162/74 pulse 74 respirations 16 temperature 98.8 was Fahrenheit weight 337 pounds PE: PHYSICAL EXAMINATION: GENERAL: The patient is awake, alert, oriented, appropriate, very pleasant in demeanor. HEENT: Shows normocephalic, atraumatic. Extraocular movements are intact and symmetrical. Oral cavity: Mucous membranes moist and pink. Dentition is intact. NECK: Shows anterior throat supple without palpable lymphadenopathy noted. Swallow reflex symmetrical. CHEST: Shows normal on inspection. Breath sounds are clear bilaterally, distant but no rales rhonchi or wheezes auscultated. HEART: Shows S1, S2 clear. No murmurs auscultated. ABDOMEN: Soft, nontender, nondistended. No palpable organomegaly is noted. No rebound or guarding demonstrated. BACK: Shows spine grossly in the midline. Normal-appearing cervical lordotic curvature. There is increased thoracic kyphosis, some flattening of the lumbar lordotic curvature. Lumbar paraspinous muscles show symmetrical on inspection, on palpation shows some moderate tenderness diffusely throughout the upper, middle and lower distribution of the paraspinous muscles, but without specific trigger points, without radiation of pain. The patient has good rotational motion of the lumbar spine, both laterally as well as extension and flexion without significant difficulty. EXTREMITIES: Lower extremities show deep tendon reflexes 1+ in the patellar and tendo calcaneus tendons. Motor exam is 5 on a scale of 5 with right dorsiflexion, extension, quadriceps and hamstring flexion and 4/5 on the left. Peripheral pulses are 1 posterior tibial. No peripheral edema is noted bilaterally. Lower extremities are warm and dry to touch, equal in color and appearance. SKIN: Shows warm and dry, good turgor. No edema. No sores, rashes or bruising throughout. Procedure: Procedure: Options were discussed with the patient. Patient chart reviews his current medication regimen updated current review of systems updated today as well. We will preauthorize patient for a lumbar epidural steroid injection he did very well with the last injection with the pain returning down a radicular fashion following L5-S1 dermatomal distribution greater on the left. Once approved, we will plan on translaminar approach L5-S1 level lumbar epidural steroid injection with fluoroscopic guidance. In the meantime, patient will continue with stretching strength exercises as well as oral analgesics as currently. Medication Injected: Med Injected: None Condition at Discharge: Condition at Discharge: Condition at discharge is stable. AMOR GOSS MD Apr 30, 2021 08:10
== END | disposition home or self-care (01) ==
LOC: PNCL 07:31
PROVIDERS: ATTEND Anesthesiology
DX: M48.061 Spinal stenosis, lumbar region without neurogenic claudication (principal); M54.16 Radiculopathy, lumbar region; M96.1 Postlaminectomy syndrome, not elsewhere classified; M19.011 Primary osteoarthritis, right shoulder; M19.012 Primary osteoarthritis, left shoulder; F17.210 Nicotine dependence, cigarettes, uncomplicated; Z79.82 Long term (current) use of aspirin; Z79.84 Long term (current) use of oral hypoglycemic drugs; Z79.899 Other long term (current) drug therapy; Z98.890 Other specified postprocedural states; Z72.89 Other problems related to lifestyle
CPT/HCPCS: 99212; G0463

== ENCOUNTER → 2021-05-23 | Outpatient (CLI) | payer OTHER ==
[2015-07-31 12:40] VITALS: BP 173/81
[~2021-05-23] MED LIST changes: +IOHEXOL 180 MG/ML 10 ML VIAL. ONE; +methylPREDNISolone ACETATE 40 MG/ML VIAL. ONE; +methylPREDNISolone ACETATE 80 MG/ML VIAL. ONE
--- NOTE | 2021-05-23 08:23 | PDOC ---
Progress Note - Pain Clinic Date of Service: DOS: DATE: 05/23/21 TIME: 08:20 Diagnosis: Dx: Lumbar radiculopathy with lumbar spinal stenosis and lumbar postlaminectomy syndrome Bilateral shoulder joint pain with osteoarthritis History or Present Illness: HPI: 65-year-old male returns for follow-up status post lumbar epidural steroid injection last on February 19, 2021 patient did very well with about 75% improvement overall patient also had a right shoulder joint injection in April with about 70% as well improvement on the right side. Patient reports he still some pain in his shoulder his main complaint is low back pain and radiating pain to the left lower extremity posterior gluteus posterior thigh posterior calf radiating with walking standing changing positions patient reports occasional pain on the right side which he usually does not have this is somewhat new for him but the left side is much more painful than the right patient reports a 9 on scale 10 is worse over the past week 8 on average 5 its least and is an 8 today patient reports aching sharp tight shooting stabbing radiating and can be constant with activity. Patient reports better with sitting or laying down generally does not awaken him from sleep at night or with riding in the car for more than about 30 minutes can exacerbate it as well patient reports no bowel or bladder incontinence. Physical Exam: VS: Blood pressure is 170/78 pulse 73 respirations 18 temperature 98.8 F height 5 feet 10 inches weight 341 PE: PHYSICAL EXAMINATION: GENERAL: The patient is awake, alert, oriented, appropriate, very pleasant in demeanor HEENT: Shows normocephalic, atraumatic. Extraocular movements are intact and symmetrical. Oral cavity: Mucous membranes moist and pink. Dentition is intact. NECK: Shows anterior throat supple without palpable lymphadenopathy noted. Swallow reflex symmetrical. CHEST: Shows normal on inspection. Breath sounds are clear bilaterally, no rales or rhonchi. HEART: Shows S1, S2 clear. No murmurs auscultated. ABDOMEN: Soft, nontender, nondistended, obese. No palpable organomegaly is noted. BACK: Shows spine grossly in the midline. Normal-appearing cervical lordotic curvature. There is slightly increased thoracic kyphosis, some minor flattening of the lumbar lordotic curvature. Lumbar paraspinous muscles show symmetrical on inspection, on palpation shows some moderate tenderness diffusely throughout the upper, middle and lower distribution of the paraspinous muscles without specific trigger points, without radiation of pain. The patient has good rotational motion of the lumbar spine, both laterally as well as extension and flexion without significant difficulty. EXTREMITIES: Lower extremities show deep tendon reflexes 1 in the patellar and tendo calcaneus tendons. Motor exam is 5 on a scale of 5 with right dorsiflexion, extension, quadriceps and hamstring flexion and 4/5 on the left. Peripheral pulses are 1+ posterior tibial. No peripheral edema is noted bilaterally. Lower extremities are warm and dry. SKIN: Shows warm and dry, good turgor. No edema. No sores, rashes or bruising throughout. Procedure: Procedure: Options discussed with patient. Patient's old chart was reviewed his current medication regimen updated current review of systems updated today as well. We will proceed with a lumbar epidural steroid injection today with fluoroscopic guidance. Risks were discussed including but not limited to: Bleeding, infection, possibility of epidural hematoma and subsequent neurological compromise, dural puncture, headaches, spinal cord and/or nerve damage, side effects of steroid medication, and poor results regarding pain control. Patient understands and wished to proceed. Patient return to clinic in approximate 2 weeks for follow-up, was counseled return appointment, typical, and side effects to be aware of. Medication Injected: Med Injected: Procedure is lumbar epidural steroid injection under local anesthetic using ster ile prep and drape at the L5-S1 level using C-arm fluoroscopic guidance in both AP and lateral views medications injected is 120 mg Depo-Medrol +10mL preservative-free normal saline and 2 mL contrast- condition at discharge is stable patient tolerated procedure well had no complications. Condition at Discharge: Condition at Discharge: Condition at discharge stable, patient tolerated procedure well and had no complications. AMOR GOSS MD May 23, 2021 08:23
--- NOTE | 2021-05-23 08:24 | PDOC4 ---
Procedure Note: ICD 10 Code: ICD 10 Code: M54.17 M4 8.07 M 96.1 Procedure Note: Patient was consented for lumbar epidural steroid injection with fluoroscopic guidance. Risks were discussed including but not limited to: Bleeding, infection, possibility of epidural hematoma and subsequent neurological compromise, dural puncture, headaches, spinal cord and/or nerve damage, side effects of steroid medication, and poor results regarding pain control. Patient understands and wished to proceed. Procedure is lumbar epidural steroid injection under local anesthetic using gisele rile prep and drape at the L5-S1 level using C-arm fluoroscopic guidance in both AP and lateral views medications injected is 120 mg Depo-Medrol +10mL preservative-free normal saline and 2 mL contrast- condition at discharge is stable patient tolerated procedure well had no complications. AMOR GOSS MD May 23, 2021 08:24
== END | disposition home or self-care (01) ==
LOC: PNCL 07:30
PROVIDERS: ATTEND Anesthesiology
DX: M48.061 Spinal stenosis, lumbar region without neurogenic claudication (principal); M96.1 Postlaminectomy syndrome, not elsewhere classified; M19.011 Primary osteoarthritis, right shoulder; M19.012 Primary osteoarthritis, left shoulder; M54.16 Radiculopathy, lumbar region; F17.210 Nicotine dependence, cigarettes, uncomplicated; Z79.82 Long term (current) use of aspirin; Z79.899 Other long term (current) drug therapy; Z72.89 Other problems related to lifestyle
CPT/HCPCS: 62323; J1030; J1040; Q9965